=== PATIENT | female | born 1980 | race Caucasian/White ===

== ENCOUNTER 2018-06-04 08:37 | Day surgery (SDC) | payer OTHER ==
[~2018-06-04] VITALS: Ht 170.2 cm; Wt 76.2 kg
[2018-06-04] VITALS (9 sets, daily range): BP systolic 104–139; BP diastolic 61–72
[~2018-06-04 08:37] MED LIST: PERCOCET
[2018-06-04] MEDS ORDERED: LEXAPRO10 MG ORAL (09:50)
[2018-06-04] MEDS ORDERED: NIGHTTIME SLEEP50 M1 PO (09:50)
--- NOTE | 2018-06-04 09:51 | Pre-Procedure Note/Attestation ---
Pre-Procedure Note/Attestation Complete Prior to Procedure Planned Procedure: not applicable Procedure Narrative: Exam under anesthesia, anal fistulotomy, anal fissurectomy, possible seton placement Indications for Procedure Pre-Operative Diagnosis: [id number], anal fissure Attestation I attest that I discussed the nature of the procedure; its benefits; risks and complications; and alternatives (and the risks and benefits of such alternatives ), prior to the procedure, with the patient (or the patient's legal data entry representative). I attest that, if there was a reasonable possibility of needing a blood transfusion, the patient (or the patient's legal data entry representative) was given the [place] [employer] [facility] [employer] [facility] standardized written summary, pursuant to the Ricky Burchinal Blood Safety Act ([place] Health and Safety Code # 1645, as amended). I attest that I re-evaluated the patient just prior to the surgery and that there has been no change in the patient's H&P, except as documented below: Jane Hanna MD Jun 04, 2018 09:51
[2018-06-04] MEDS ORDERED: Dexamethasone 4mg/ml vial ONE (10:04)
[2018-06-04] MEDS ORDERED: Ropivacaine 5mg/ml Vial 30ml INJ ONE (10:04)
[2018-06-04] MEDS ORDERED: EPINEPHrine 1mg/1ml Amp ONE (10:04)
[2018-06-04] MEDS ORDERED: Hydrogen Peroxide 473ml Bottle TOPIC ONE (10:04)
[2018-06-04] MEDS ORDERED: Acetic Acid 3% Solution 15ml TOPIC ONE (10:15)
[2018-06-04] MEDS ORDERED: Propofol 200mg/20ml IV ONE (11:48)
[2018-06-04] MEDS ORDERED: Lidocaine 1% Plain 30 ml INJ ONE (11:48)
[2018-06-04] MEDS ORDERED: Alfentanil 2ml Inj ONE (11:49)
[2018-06-04] MEDS ORDERED: cefOXitin 1gm Inj ONE (11:49)
[2018-06-04] MEDS ORDERED: LR 1000ml ONE (12:00)
[2018-06-04] MEDS ORDERED: Sterile Water Irrig 1000ml IRRIG ONE (12:00)
[2018-06-04] MEDS ORDERED: NS Irrig 1000ml ONE (12:00)
[2018-06-04] MEDS ORDERED: LR 1000ml 1,000 ML IVLG SCH (12:08)
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
[2018-06-04] MEDS ORDERED: DiphenhydrAMINE 50mg/ml Inj IVP PRN (12:15)
[2018-06-04] MEDS ORDERED: HYDROcodone/Acetamin 5/325 tab ORAL PRN (12:15)
[2018-06-04] MEDS ORDERED: Midazolam 2mg/2ml Inj IVP PRN (12:15)
[2018-06-04] MEDS ORDERED: Acetaminophen (Non formulary) 100 ML IV ONE (12:15)
[2018-06-04] MEDS ORDERED: Meperidine 50mg/ml Inj(FOR RIGORS ONLY) IVP PRN (12:15)
[2018-06-04] MEDS ORDERED: Hydromorphone 0.5mg/0.5ml inj IVP PRN (12:15)
[2018-06-04] MEDS ORDERED: Ketorolac 30mg Inj IV PRN ×2 (12:15)
[2018-06-04] MEDS ORDERED: HYDROcodone/Acetamin 7.5/325 tab ORAL PRN (12:15)
[2018-06-04] MEDS ORDERED: fentaNYL 100 mcg/2 mL IV PRN (12:15)
[2018-06-04] MEDS ORDERED: LORazepam Inj 2mg/ml 1ml IV PRN (12:15)
[2018-06-04] MEDS ORDERED: Labetalol 5mg/ml 20ml vial IV PRN (12:15)
[2018-06-04] MEDS ORDERED: oxyCODONE HCL/Acetaminophen 5/325mg ORAL PRN (12:15)
[2018-06-04] MEDS ORDERED: Atropine Sulfate 0.4mg/ml inj IVP PRN (12:15)
[2018-06-04] MEDS ORDERED: Metoclopramide 10mg/2ml Inj IVP PRN (12:15)
--- NOTE | 2018-06-04 12:17 | Immediate Post-Op Evaluation ---
Immediate Post-Op Evalulation Immediate Post-Op Evalulation Procedure: Anal Fistulotomy Date of Evaluation: Jun 04, 2018 Time of Evaluation: 12:34 IV Fluids: 600 LR Blood Products: 0 Estimated Blood Loss: 10 Urinary Output: 0 Blood Pressure Systolic: 139 Blood Pressure Diastolic: 72 Pulse Rate: 91 Respiratory Rate: 16 O2 Sat by Pulse Oximetry: 100 Temperature (Fahrenheit): 97.2 Pain Score (1-10): 1 Nausea: No Vomiting: No Complications 0 Patient Status: awake, reacts, patent, none Hydration Status: adequate Dru Gram Cefoxitin IV Given Within 1 Hr of Incision: Yes Time Given: 11:59 Lalit Angeles MD Jun 04, 2018 12:17
--- NOTE | 2018-06-04 12:17 | 48 Hour Post Anesthesia Eval ---
Post Anesthesia Evaluation Procedure: Anal Fistulotomy Date of Evaluation: Jun 04, 2018 Time of Evaluation: 14:43 Blood Pressure Systolic: 121 0: 72 Pulse Rate: 87 Respiratory Rate: 18 Temperature (Fahrenheit): 98.2 O2 Sat by Pulse Oximetry: 100 Airway: patent Nausea: No Vomiting: No Pain Intensity: 0 Hydration Status: adequate Cardiopulmonary Status: Stable Mental Status/LOC: patient returned to baseline Follow-up Care/Observations: 0 Post-Anesthesia Complications: 0 Follow-up care needed: ready to discharge Lalit Angeles MD Jun 04, 2018 12:17
--- NOTE | 2018-06-04 12:35 | Brief Operative Note ---
Immediate Post Operative Note Operative Note Pre-op Diagnosis: [id number], anal fissure Procedure: Exam under anesthesia, anal fistulotomy, anal fissurectomy Post-op Diagnosis: same Post-op Diagnosis: same as pre-op Findings: consistent w/pre-op dx studies Surgeon: Jane Hanna MD Anesthesiologist: Lalit Angeles MD. Anesthesia: moderate sedation Specimen: yes Complications: none Condition: stable Fluids: see anesthesia record Estimated Blood Loss: minimal Drains: none Implant(s) used?: No Jane Hanan MD Jun 04, 2018 12:35
--- NOTE | 2018-06-04 16:45 | Operative Note - Dictated ---
DATE OF OPERATION: 06/04/2018 PREOPERATIVE DIAGNOSIS: Chronic pxbzytu-lx-[id number], chronic anal fissure. POSTOPERATIVE DIAGNOSIS: Chronic ccejeyb-ce-bxc, chronic anal fissure. PROCEDURE: Exam under anesthesia, anal fistulotomy with fissurectomy. SURGEON: Jane Hanna M.D. ANESTHESIOLOGIST: Lalit Angeles M.D. ANESTHESIA: Propofol sedation with local anesthetic. INDICATION FOR PROCEDURE: The patient is a 37-year-old, female, who was sent to my office by her physician Dr. Shraddha Townsend for colorectal surgical evaluation of a chronic anal fistulotomy. The patient reports that she has had her fissure for the last 10 years and had received . The patient was found to have a chronic fmhontl-qc-btr. Physical exam with the external opening in the anterior anal skin tag and internal opening at the base of the chronic anal fissure. In light of the patient's symptoms and findings, it was determined that we proceed with examination under anesthesia with anal fistulotomy and fissurectomy. DESCRIPTION OF PROCEDURE: Upon consent of the patient, the patient was brought to the operating room, placed in a prone yokasta-knife position on the operating table. Once adequate sedation was started with propofol drip, the patient's buttocks were prepped and draped in usual standard surgical fashion. A 40 mL of 0.5% ropivacaine with epinephrine mixed with 8 mg of dexamethasone was used as a perianal and pudendal block. A Hill-Hernandez retractor was placed into the anal canal. There was noted to be a wide based chronic anal fissure in the anterior midline with an internal opening that opened to the external opening in the sentinel tag anteriorly. The lacrimal probe was used to probe the fistula tract. It was noted to be superficial with no sphincteric muscle involvement. The skin was opened overlying lacrimal probe and the skin tag was excised also and passed of field as a specimen. The hypertrophied anal papilla in the base of the fissure was excised and sent as a specimen. The base of the fissurectomy was scraped of any full chronic scar and electrocauterized. Since the wound was noted to be superficial, there were no sutures or marsupialization needed. Minor skin tag in the posterior midline and also in the left lateral perianal skin were excised also. The patient was noted to have moderate-sized internal hemorrhoids circumferentially. The anal canal was then irrigated and hemostasis was confirmed. An ice pack was used for postoperative swelling. Sponge, needle, and instrument counts were correct at the end of the case. The patient was awakened from anesthesia and brought to postanesthesia recovery room in stable condition. ESTIMATED BLOOD LOSS: Less than 5 mL. DRAINS: None. SPECIMEN: Anal polyp. COMPLICATIONS: None. Jane Hanna M.D. DR: Shy JOB#: [id number] CC: Jane Hanna M.D.; Fax#: [phone] Shraddha Singh M.D.
== END 2018-06-04 15:15 | disposition home or self-care (01) ==
LOC: SUR 08:37
DX: K60.3 Anal fistula (principal); K60.1 Chronic anal fissure; Z91.040 Latex allergy status
CPT/HCPCS: 46270; 81025; J0171; J0694; J1100; J1885; J2001; J2250; J2704; J2795; J3490; 94003; 94150